=== PATIENT | female | born 1965 | race Caucasian/White ===

== ENCOUNTER 2016-11-02 15:03 | Inpatient (IN) | payer SELFPAY ==
[~2016-11-02] VITALS: Ht 162.6 cm; Wt 99.3 kg
[2016-11-02] VITALS (14 sets, daily range): BP systolic 133–185; BP diastolic 74–107
--- NOTE | 2016-11-02 15:10 | NUR ---
GIUSEPPE FROM HOME DT CHEST PAIN RADIATING TO NECK,. 01/10. PATIENT IS AAO4. APPEARS IN NO APPARENT DISTRESS, RESPIRATION EVEN AND UNLABORED,. SKIN IS WARM TO TOUCH AND NON DIAPHORETIC.PT IS AFEBRILE. VSS
--- NOTE | 2016-11-02 15:15 | NUR ---
EKG IN PROGRESS
[2016-11-02] MEDS ORDERED: MORPHINE SULFATE INJ 4 MG/ML DISP.SYRIN ONE ×3 (15:19→18:03)
[2016-11-02] MEDS ORDERED: ONDANSETRON HCL/PF 4 MG/2 ML VIAL ONE ×2 (15:19→18:54)
--- NOTE | 2016-11-02 15:28 | NUR ---
BLOOD SAMPLE COLLECTED BY PIN DRAFTING MACHINE TENDER
[2016-11-02] MEDS ORDERED: ONDANSETRON HCL/PF 4 MG/2 ML VIAL IVP ONE (15:30)
[2016-11-02] MEDS ORDERED: MORPHINE SULFATE INJ 2 MG/ML DISP.SYRIN IV ONE ×3 (15:30→18:00)
[2016-11-02] MEDS ORDERED: IV NS 0.9% 1,000 ML BAG IV ONE (15:30)
[2016-11-02 15:33] LABS: BASOPHILS # (AUTO) 0.1 /CMM (0.0-0.2); BASOPHILS % (AUTO) 0.7 % (0.0-2.0); EOSINOPHILS # (AUTO) 0.2 /CMM (0.0-0.7); EOSINOPHILS % (AUTO) 1.2 % (0.0-6.0); HEMATOCRIT 46 % (33-45); HEMOGLOBIN 15.5 g/dL (11.5-14.8); LYMPHOCYTES # (AUTO) 4.5 /CMM (0.8-4.8); MEAN CORPUSCULAR HEMOGLOBIN 28 PG (26.0-33.0); MEAN CORPUSCULAR HGB CONC 33 g/dl (31.0-36.0); MEAN CORPUSCULAR VOLUME 84 fL (82-100); MONOCYTES # (AUTO) 1.1 /CMM (0.1-1.30); MONOCYTES % (AUTO) 7.8 % (2.0-12.0); NEUTROPHILS # (AUTO) 7.8 /CMM (1.8-8.9); NEUTROPHILS % (AUTO) 57.3 % (43.0-81.0); PLATELET COUNT (AUTO) 359 /CMM (150-450); RDW COEFFICIENT OF VARIATION 13.4 (11.5-15.0); RED BLOOD CELL COUNT(AUTO) 5.52 MIL/uL (4.0-5.2); WHITE BLOOD COUNT (AUTO) 13.7 K/uL (4.3-11.0)
[2016-11-02 15:52] LABS: CALCIUM, SERUM 9.1 mg/dL (8.5-10.1); CREATININE 0.8 mg/dL (0.6-1.3); POTASSIUM 3.7 mmol/L (3.5-5.1)
[2016-11-02 15:56] LABS: TROPONIN I 0.331 ng/mL (0.00-0.056)
--- NOTE | 2016-11-02 16:08 | NUR ---
PT CONSENTED FOR CTA NECK AND CHEST
[2016-11-02 16:10] LABS: D-DIMER 0.43 mg/L(FEU (0.17-0.50); INR 0.96 (0.87-1.13); PROTHROMBIN TIME 10.2 SECS (9.5-12.7)
[2016-11-02] MEDS ORDERED: NTG 50 MG/D5W250 ML BOTTL 250 ML IV ONE ×2 (16:13→16:30)
[2016-11-02] MEDS ORDERED: CT SWABBABLE VALVE TRANS SET 1 EA INFUS.SET MC ONE (16:20)
[2016-11-02] MEDS ORDERED: IOHEXOL-350 100 ML VIAL IV ONE (16:20)
[2016-11-02] MEDS ORDERED: IV NS 0.9% 250 ML IV ONE (16:21)
[2016-11-02] MEDS ORDERED: IBUP200C5 PO (16:33)
[2016-11-02] MEDS ORDERED: ACET500T86 PO (16:33)
--- NOTE | 2016-11-02 17:20 | NUR ---
PATIENT TO CT
[2016-11-02] MEDS ORDERED: ASPIRIN 325 MG TABLET ONE (18:23)
[2016-11-02] MEDS ORDERED: ENOXAPARIN SODIUM 80 MG/0.8 ML DISP.SYRIN SQ SCH (18:29)
[2016-11-02] MEDS ORDERED: ASPIRIN 325 MG TABLET PO ONE (18:30)
[2016-11-02] MEDS ORDERED: ENOXAPARIN SODIUM 30 MG/0.3 ML DISP.SYRIN ONE (18:53)
[2016-11-02] MEDS: ONDANSETRON HCL/PF 4 MG/2 ML VIAL IV ONE ×2 (18:55→19:02)
[2016-11-02] MEDS: ENOXAPARIN SODIUM 60 MG/0.6 ML DISP.SYRIN SQ ONE ×2 (18:55→19:01)
[2016-11-02] MEDS ORDERED: ENOXAPARIN SODIUM 80 MG/0.8 ML DISP.SYRIN SQ ONE (19:37)
--- NOTE | 2016-11-02 19:39 | NUR ---
REPORT GIVEN TO JNE SERRATO FOR [facility]
--- NOTE | 2016-11-02 19:48 | NUR ---
CALLED [facility], GIN FEEDER WAS PAGED.
--- NOTE | 2016-11-02 20:17 | NUR ---
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
[2016-11-02] MEDS ORDERED: Z GUARD REMEDY 2 OZ OINT TP PRN (20:30)
[2016-11-02] MEDS ORDERED: MORPHINE SULFATE INJ 2 MG/ML DISP.SYRIN IV PRN (20:30)
[2016-11-02] MEDS ORDERED: ZOLPIDEM TARTRATE 5 MG TABLET PO PRN (20:30)
[2016-11-02] MEDS ORDERED: ALPRAZOLAM 0.25 MG TABLET PO PRN (20:30)
[2016-11-02] MEDS ORDERED: ACETAMINOPHEN 325 MG TABLET PO PRN (20:30)
[2016-11-02] MEDS ORDERED: DEXTROSE 50%-WATER 50 ML DISP.SYRIN IV PRN (20:30)
[2016-11-02] MEDS ORDERED: MAG HYDROX/AL HYDROX/SIMETH 30 ML UDC PO PRN (20:30)
[2016-11-02] MEDS ORDERED: ALBUTEROL FS 2.5 MG/3 ML VIAL.NEB NEB PRN ×2 (20:30)
[2016-11-02] MEDS ORDERED: HYDROCODONE/APAP 5/325MG 1 EACH TABLET PO PRN (20:30)
[2016-11-02] MEDS ORDERED: MAGNESIUM HYDROXIDE 30 ML UDC PO PRN (20:30)
--- NOTE | 2016-11-02 20:30 | NUR ---
received pt from ER, a/o x4, follows commands, SR, receiving nitro drip at 10mcg, on 2L 02, sat well, lungs clear, no edema, uses beside commode, v/s stable, no chest pain verbalized, family at the bedside.
[2016-11-02] MEDS: ENOXAPARIN SODIUM 80 MG/0.8 ML DISP.SYRIN SQ SCH (21:00)
[2016-11-02] MEDS ORDERED: TRAMADOL HCL 50 MG TABLET PO PRN (21:00)
[2016-11-02] MEDS: INSULIN REGULAR, HUMAN 100 UNIT/ML 3 ML VIAL SQ PRN (21:14)
[2016-11-02] MEDS: IV NS 0.9% 1,000 ML IV PRN (21:14)
[2016-11-02 21:15] LABS: INR 1.02 (0.87-1.13); PROTHROMBIN TIME 10.9 SECS (9.5-12.7)
[2016-11-02 21:16] LABS: ALBUMIN 3.5 g/dL (3.4-5.0); BILIRUBIN,DIRECT 0.1 mg/dL (0.0-0.2); BILIRUBIN,TOTAL 0.7 mg/dL (0.2-1.0); MAGNESIUM 1.6 mg/dL (1.8-2.4); TOTAL PROTEIN, SERUM 7.8 g/dL (6.4-8.2)
[2016-11-02] MEDS: BLOOD SUGAR DIAGNOSTIC 1 EACH STRIP IN SCH (21:17)
[2016-11-02 21:38] LABS: THYROID STIMULATING HORMONE 0.431 uIU/mL (0.358-3.74)
[2016-11-02] MEDS: ONDANSETRON HCL/PF 4 MG/2 ML VIAL IVP PRN (21:46)
[2016-11-02] MEDS: NTG 50 MG/D5W250 ML BOTTL 250 ML IV PRN (21:49)
[2016-11-02] MEDS ORDERED: ATORVASTATIN 10 MG TABLET PO SCH (22:00)
[2016-11-03] VITALS (43 sets, daily range): BP systolic 108–152; BP diastolic 62–94
[2016-11-03] MEDS: INSULIN REGULAR, HUMAN 100 UNIT/ML 3 ML VIAL SQ PRN ×3 (00:13→08:23)
[2016-11-03] MEDS: BLOOD SUGAR DIAGNOSTIC 1 EACH STRIP IN SCH ×3 (00:14→08:22)
--- NOTE | 2016-11-03 00:28 | NUR ---
pt is resting in the bed, on nitro drip at 60mcg, v/s stable, no pain, Troponin 11.650, MD aware.
[2016-11-03] MEDS ORDERED: INSULIN DETEMIR 100 UNIT/ML CARTRIDGE SQ SCH (00:30)
--- NOTE | 2016-11-03 00:30 | NUR ---
pt c/o chest pain radiating to the neck, morphine 2mg ivp given, nitro increased to 100mcg.
[2016-11-03] MEDS ORDERED: Magnesium 1GM/D5W 100ML PREMIX 300 ML IV ONE (00:36)
[2016-11-03] MEDS: Magnesium 1GM/D5W 100ML PREMIX 100 ML IV SCH ×3 (00:41→02:36)
--- NOTE | 2016-11-03 00:54 | NUR ---
pt verbalized less pain 2/10. having some nausea.
[2016-11-03] MEDS ORDERED: INSULIN DETEMIR 100 UNIT/ML CARTRIDGE SQ ONE (01:37)
[2016-11-03] MEDS: ONDANSETRON HCL/PF 4 MG/2 ML VIAL IVP PRN ×3 (03:54→11:44)
--- NOTE | 2016-11-03 04:26 | NUR ---
pt is resting in the bed, alert, follows commands, on nitro drip at 100mcg, 4L 02, v/s stable, no chest pain verbalized.
[2016-11-03 05:38] LABS: BASOPHILS % (AUTO) 0.2 % (0.0-2.0); EOSINOPHILS % (AUTO) 0.3 % (0.0-6.0); HEMATOCRIT 38 % (33-45); HEMOGLOBIN 13.1 g/dL (11.5-14.8); LYMPHOCYTES # (AUTO) 3.2 /CMM (0.8-4.8); LYMPHOCYTES % (AUTO) 22.2 % (20.0-44.0); MEAN CORPUSCULAR HEMOGLOBIN 29 PG (26.0-33.0); MEAN CORPUSCULAR HGB CONC 35 g/dl (31.0-36.0); MEAN CORPUSCULAR VOLUME 83 fL (82-100); MONOCYTES # (AUTO) 1.2 /CMM (0.1-1.30); MONOCYTES % (AUTO) 8.3 % (2.0-12.0); NEUTROPHILS # (AUTO) 9.8 /CMM (1.8-8.9); PLATELET COUNT (AUTO) 301 /CMM (150-450); WHITE BLOOD COUNT (AUTO) 14.3 K/uL (4.3-11.0)
[2016-11-03 05:52] LABS: CALCIUM, SERUM 7.8 mg/dL (8.5-10.1); CREATININE 0.6 mg/dL (0.6-1.3); PHOSPHORUS 4.1 mg/dL (2.5-4.9); POTASSIUM 3.6 mmol/L (3.5-5.1)
[2016-11-03] MEDS: NTG 50 MG/D5W250 ML BOTTL 250 ML IV PRN (05:57)
--- NOTE | 2016-11-03 06:34 | NUR ---
Troponin 17.09, notified.
[2016-11-03] MEDS ORDERED: PANTOPRAZOLE 40 MG TABLET.DR PO SCH (07:30)
--- NOTE | 2016-11-03 08:00 | NUR ---
PT AOX3. VSS. DENIES CHEST PAIN AT THIS TIME. INDICATES SLIGHT NAUSEA. MEDICATED SCHEDULED.
--- NOTE | 2016-11-03 08:15 | NUR ---
PLAN OF CARE DISCUSES WITH CHARGE NURSE, MEDICATED WITH ASA 81. MG AND LOVENOX 70 MG, NITRO GTT 100MICS/MIN. AWAITING TO BE SEEN BY THE MD.
[2016-11-03] MEDS: ENOXAPARIN SODIUM 80 MG/0.8 ML DISP.SYRIN SQ SCH (08:26)
[2016-11-03] MEDS ORDERED: ASPIRIN 81 MG TAB.CHEW PO SCH (09:00)
--- NOTE | 2016-11-03 09:45 | NUR ---
DR WEEKS AND KRISTI IRBY,ACNP AT BEDSIDE. PT WILL BE TRANSFERRED TO [facility] OR OTHER ACCEPTING FACILITY [facility]. PT NOTIFIED. PT VERBALIZING UNDERSTANDING.
[2016-11-03] MEDS: IV NS 0.9% 1,000 ML IV PRN (11:08)
--- NOTE | 2016-11-03 11:15 | NUR ---
REPORT TO ACLS NURSE GIVEN, PT BEING TRANSFERRED TO [facility]. REPORT TO JEN GUERRA AT CATH. LAB GIVEN. BIPIN MARIE AT BEDSIDE, OK TO GIVE ADDITIONAL DOSE OF ZOFRAN.
== END 2016-11-03 11:30 | disposition short-term general hospital (02) | DRG 281 ==
LOC: ER 15:05 → ICU 20:01
PROVIDERS: ADMIT Internal Medicine; ATTEND Internal Medicine
PROC: 05H533Z Insertion of Infusion Device into Right Subclavian Vein, Percutaneous Approach (ICD-10-PCS; principal; 2016-11-02)
DX: I21.09 ST elevation (STEMI) myocardial infarction involving other coronary artery of anterior wall (principal); E87.1 Hypo-osmolality and hyponatremia; E78.5 Hyperlipidemia, unspecified; E86.0 Dehydration; Z88.5 Allergy status to narcotic agent; I10 Essential (primary) hypertension; E11.65 Type 2 diabetes mellitus with hyperglycemia; E04.2 Nontoxic multinodular goiter; Z83.3 Family history of diabetes mellitus; E66.9 Obesity, unspecified; Z68.37 Body mass index [BMI] 37.0-37.9, adult
CPT/HCPCS: 36415; 36569; 70450-TC; 70498-TC; 71010-TC; 80048-TC; 80061-TC; 80076-TC; 82962-TC; 83735-TC; 84100-TC; 84443-TC; 84484-TC; 85025-TC; 85378-TC; 85610-TC; 85730-TC; 87081-TC; A4606; J1650; J1815; J2270; J2405; J3475; J3490; J7030; J7050; Q9967; Z7610

== ENCOUNTER 2021-05-07 11:17 | Emergency (ER) | payer OTHER ==
[~2021-05-07] VITALS: Ht 165.1 cm; Wt 90.7 kg
--- NOTE | 2021-05-07 11:29 | NUR ---
[id number] FROM HOME C/O BACK PAIN RADIATING DOWN THE L LEG SINCE MONDAY, INCREASINGLY GETTING WORSE. UNRELEIVED BY [facility] OR TYLENOL. PAIN 9 ON PAIN SCALE. AWAITING MD TAN.
[2021-05-07] MEDS ORDERED: MORPHINE SULFATE INJ 4 MG/ML DISP.SYRIN ONE (11:50)
[2021-05-07] MEDS ORDERED: ONDANSETRON 4 MG TAB.RAPDIS ONE (11:51)
[2021-05-07] MEDS ORDERED: ONDANSETRON 4 MG TAB.RAPDIS SL ONE (12:00)
[2021-05-07] MEDS ORDERED: MORPHINE SULFATE INJ 2 MG/ML DISP.SYRIN IM ONE (12:00)
[2021-05-07] MEDS ORDERED: PRED20TA PO ×2 (12:18→12:41)
[2021-05-07] MEDS ORDERED: CYCL5TAB PO ×2 (12:18→12:41)
[2021-05-07] MEDS ORDERED: IBUP-1955 PO ×2 (12:18→12:41)
[2021-05-07 13:23] VITALS: BP 180/109
== END 2021-05-07 13:24 | disposition home or self-care (01) ==
LOC: ER 11:26
DX: M54.42 Lumbago with sciatica, left side (principal); Z88.6 Allergy status to analgesic agent; Z60.2 Problems related to living alone
CPT/HCPCS: 96372; 99283; J2270; Q0162